=== PATIENT | male | born 1995 | race African-American/Black ===

== ENCOUNTER 2018-12-26 11:17 | Emergency (ER) | payer OTHER ==
[~2018-12-26] VITALS: Ht 167.6 cm; Wt 69.3 kg
[2018-12-26 11:19] VITALS: BP 136/71
[2018-12-26] MEDS ORDERED: LIDOCAINE-MPF 1%, 5ML ONE (11:29)
[2018-12-26] MEDS ORDERED: LIDOCAINE-MPF 1%, 5ML INFIL ONE (11:30)
[2018-12-26] MEDS ORDERED: NEOSPORIN OINT. PKT 1 PACKET ONE (11:35)
== END 2018-12-26 12:06 | disposition home or self-care (01) ==
LOC: ED 11:58
DX: L03.032 Cellulitis of left toe (principal); F17.200 Nicotine dependence, unspecified, uncomplicated
CPT/HCPCS: 99281

== ENCOUNTER 2020-02-12 10:43 | Emergency (ER) | payer SELFPAY ==
[~2020-02-12] VITALS: Ht 172.7 cm; Wt 68.1 kg
[2020-02-12 10:46] VITALS: BP 137/47
--- NOTE | 2020-02-12 11:24 | NUR ---
ice applied to right knee. we are awaiting imaging
--- NOTE | 2020-02-12 12:14 | NUR ---
pt is awaiting an xr on an .[facility]
== END 2020-02-12 13:20 | disposition home or self-care (01) ==
LOC: ED 11:39
DX: G89.11 Acute pain due to trauma (principal); M25.561 Pain in right knee; F17.210 Nicotine dependence, cigarettes, uncomplicated; X50.1XXA Overexertion from prolonged static or awkward postures, initial encounter; Y93.51 Activity, roller skating (inline) and skateboarding; Y92.488 Other paved roadways as the place of occurrence of the external cause; Y99.8 Other external cause status
CPT/HCPCS: 99283